=== PATIENT | male | born 1975 | race Caucasian/White ===

== ENCOUNTER → 2018-10-20 | Day surgery (SDC) | payer OTHER ==
[~2018-10-20] MED LIST: CARAFATE1 GM PO; PERCOCET 5-3251 EACH PO; POLY119PG PO
== END | disposition home or self-care (01) ==
LOC: ADM 10-15 13:45 → CIR.AMB 06:38
DX: K80.12 Calculus of gallbladder with acute and chronic cholecystitis without obstruction (principal); K42.9 Umbilical hernia without obstruction or gangrene; K43.2 Incisional hernia without obstruction or gangrene